=== PATIENT | female | born 1960 | race African-American/Black ===

== ENCOUNTER 2020-10-03 13:04 | Emergency (ER) | payer OTHER ==
[2020-10-03 13:10] VITALS: BP 166/99; PULSE 84; TEMP 98; BMI 32.1
[2020-10-03] MEDS ORDERED: KETOROLAC TROMETHAMINE 30 MG/1 ML VIAL IM ONE (13:26)
[2020-10-03] MEDS ORDERED: KETOROLAC TROMETHAMINE 30 MG/1 ML VIAL ONE (13:40)
== END 2020-10-03 14:49 | disposition home or self-care (01) ==
LOC: JER 13:04 → JERFT 13:04
PROC: 3E0233Z Introduction of Anti-inflammatory into Muscle, Percutaneous Approach (ICD-10-PCS; principal; 2020-10-03)
DX: M25.552 Pain in left hip (principal)
CPT/HCPCS: 73523-TC-FY; 99284-25